=== PATIENT | male | born 1945 | race Caucasian/White ===

== ENCOUNTER → 2020-04-04 | Outpatient (CLI) | payer MEDICARE ==
--- NOTE | 2020-04-04 17:36 | EXE ---
[place] [address] STRESS ECHOCARDIOGRAM Name: KESHIA YOUNG Room: [facility]#: [id number] Admission: 04/04/20 Attend Phys: Enrique Rios, Discharge: Date of : 49 Date of Service: 04/04/20 1735 Report #: [id number] THIS REPORT FOR: cc: Junaid Garland,Junaid Orellana,Enrique Nieto MD [facility] ~ APPROVED REPORT Study performed: 04/04/2020 15:33:34 Exam: Stress Echocardiogram Indication: Congestive Heart Failure, Hypertension Patient Location: Out-Patient Stress Nurse: Nannette Whitfield RN Supervising Physician: Jarett Aleman MD Ht: 6 ft 1 in HR: 67 bpm BP: 143/81 mmHg Medical History Cardiac Risk Factors: Age, , Hyperlipidemia, HTN, DM, Tobacco History (Former), FHX of CAD Procedure The patient underwent an Exercise Stress Test using the Silvino Protocol. Blood pressure, heart rate, and EKG were monitored. An Echocardiogram was performed by survey and mapping technician in four stages in quad fashion. At peak stress, four selected images were obtained and placed side by side with resting images for comparison. Stress Test Details Stress Test: Exercise stress testing was performed using a modified Silvino protocol. HR Resting HR: 67 bpm Max Heart Rate (APMHR): 147 bpm Max HR Achieved: 133 bpm Target HR (85% APMHR): 124 bpm % of APMHR: 90 Recovery HR: 75 bpm HR response to stress: Normal HR response to stress BP Resting BP: 143/81 mmHg Max BP: 203/80 mmHg Recovery BP: 165/[place] [address] STRESS ECHOCARDIOGRAM Name: KESHIA YOUNG Room: [facility]#: [id number] Admission: 04/04/20 Attend Phys: Enrique Rios, Discharge: Date of : 49 Date of Service: 04/04/20 1735 Report #: [id number] BP response to stress: Normal blood pressure response to stress. ECG Resting ECG: Sinus Rhythm Stress ECG: Sinus Tachycardia ST Change: none Arrhythmia: VPC's, APC's Recovery ECG: Sinus Rhythm Recovery ST Change: none Recovery Arrhythmia: VPC's, APC's Clinical Reason for Termination: Completed protocol Exercise duration: 5 min 45 sec Highest Stage Achieved: Stage 2: 2.5 mph at 12% grade. Exercise capacity: 5.45 METs The patient tolerated low-level standard Silvino protocol exercise without significant cardiac symptoms. Functional status was somewhat limited. Stress ECG Conclusion The baseline twelve-lead EKG shows sinus rhythm without significant ST segment or T wave abnormality. EKGs obtained during and post exercise stress show sinus rhythm and sinus tachycardia with occasional premature atrial and premature ventricular contractions. There were no significant ST segment or T wave changes noted. Pre-Stress Echo The resting Echocardiogram showed normal left ventricular contractility with an estimated Ejection Fraction of about 60-65%. The resting echocardiogram demonstrated normal wall motion in all wall segments. Post-Stress Echo The stress Echocardiogram showed normal left ventricular contractility with an estimated Ejection Fraction of about >70%. Compared to rest, there were no stress-induced wall motion abnormalities. Conclusion Clinical Response: Non-ischemic Exercise Capacity: Below Average Stress ECG Response: Non-ischemic Stress Echo Images: [place] [address] STRESS ECHOCARDIOGRAM Name: KESHIA YOUNG Room: [facility]#: [id number] Admission: 04/04/20 Attend Phys: Enrique Rios, Discharge: Date of : 49 Date of Service: 04/04/201734 Report #: [id number] Other Information Study Quality: Good <ELECTRONICALLY SIGNED> By: Enrique Rios MD, FACC 04/04/201734 34 34 Enrique Rios MD, FACC /INF
== END ==
LOC: M.CRD 03-28 15:00
PROVIDERS: ATTEND Internal Medicine Cardiovascular Disease
DX: I49.3 Ventricular premature depolarization (principal); I49.1 Atrial premature depolarization; R00.0 Tachycardia, unspecified; I11.0 Hypertensive heart disease with heart failure; I50.9 Heart failure, unspecified; E78.5 Hyperlipidemia, unspecified; E11.9 Type 2 diabetes mellitus without complications; Z72.0 Tobacco use

== ENCOUNTER → 2020-04-04 | Outpatient (CLI) | payer OTHER | LOC: M.CT 03-28 14:15 | PROVIDERS: ATTEND Internal Medicine Cardiovascular Disease | DX: I25.10 Atherosclerotic heart disease of native coronary artery without angina pectoris (principal); E11.65 Type 2 diabetes mellitus with hyperglycemia; I10 Essential (primary) hypertension; E78.2 Mixed hyperlipidemia; Z82.49 Family history of ischemic heart disease and other diseases of the circulatory system ==